=== PATIENT | male | born 1990 | race Two or more races ===

== ENCOUNTER 2017-02-19 00:21 | Emergency (ER) | payer OTHER ==
[~2017-02-19] VITALS: Ht 167.6 cm; Wt 68.0 kg
[2017-02-19] MEDS ORDERED: ACETAMINOPHEN ES 500 MG TABLET ONE (00:46)
[2017-02-19] MEDS: ACETAMINOPHEN 325 MG TABLET PO ONE (00:51)
[2017-02-19] MEDS ORDERED: BUPIVACAINE 0.5 % PF 150 MG/30 ML VIAL ONE (01:08)
[2017-02-19] MEDS: BUPIVACAINE 0.5 % PF 150 MG/30 ML VIAL IJ ONE (01:40)
[2017-02-19 02:17] VITALS: BP 116/78
== END 2017-02-19 02:19 ==
LOC: ER 00:26
DX: S62.324A Displaced fracture of shaft of fourth metacarpal bone, right hand, initial encounter for closed fracture (principal); W22.8XXA Striking against or struck by other objects, initial encounter; Y93.89 Activity, other specified; Y92.89 Other specified places as the place of occurrence of the external cause; Y99.9 Unspecified external cause status
CPT/HCPCS: 73130-TC; A4606; J3490; Z7610